=== PATIENT | male | born 1965 | race Caucasian/White ===

== ENCOUNTER 2018-09-28 10:53 | Emergency (ER) | payer OTHER ==
[~2018-09-28] VITALS: Ht 170.2 cm; Wt 92.1 kg
[~2018-09-28 10:53] MED LIST: LEVO750 PO; METO25ER PO; OXYC5 PO; SACC250C PO; WARF4 PO; WARF7.5; cipro
[2018-09-28] MEDS ORDERED: AMOX875 PO (11:13)
[2018-09-28] MEDS ORDERED: IBUP600 PO (12:09)
== END 2018-09-28 12:24 | disposition home or self-care (01) ==
LOC: ER 10:53
DX: S62.316A Displaced fracture of base of fifth metacarpal bone, right hand, initial encounter for closed fracture (principal); I10 Essential (primary) hypertension; Z79.899 Other long term (current) drug therapy; W01.0XXA Fall on same level from slipping, tripping and stumbling without subsequent striking against object, initial encounter
CPT/HCPCS: 29125; 73130; 99283-25

== ENCOUNTER → 2018-12-25 | Outpatient (CLI) | payer OTHER ==
[~2018-12-25] MED LIST changes: +AMOX875 PO; +IBUP600 PO
[2018-12-25 11:36] LABS: Source, Urine Clean Catch
[2018-12-25 13:12] LABS: Bilirubin, Urine Neg (Neg); Blood, Urine Neg (Neg); Glucose Qualitative, Urine Neg (Neg); Ketones, Urine Neg (Neg); Leukocyte Esterase, Urine Neg (Neg); Nitrite, Urine Neg (Neg); Protein, Urine Neg (Neg); Specific Gravity, Urine 1.015 (1.003-1.022); Urobilinogen, Urine NORM (Normal)
[2018-12-25 14:45] LABS: Appearance, Urine Clear (Clear); Color, Urine Yellow (P-Yellow)
== END ==
LOC: LAB 11:33 → LAB SHORT 11:33 → LAB FUT 12-20 12:40 → EDSTATUS 12-20 12:40
PROVIDERS: Internal Medicine
DX: R97.20 Elevated prostate specific antigen [PSA] (principal)
CPT/HCPCS: 81003

== ENCOUNTER → 2023-01-30 | Outpatient (CLI) | payer OTHER ==
[~2023-01-30] MED LIST changes: +ASPIR 8181 M1 PO; +TRAZ150T57 PO
[2023-01-30 14:14] LABS: BASOPHILS ABSOLUTE AUTO 0.07 K/mm3 (0.00-0.23); BASOPHILS PERCENT AUTO 1 % (0-2); EOSINOPHILS ABSOLUTE AUTO 0.24 K/mm3 (0.00-0.68); EOSINOPHILS PERCENT AUTO 3 % (0-6); Hematocrit 45.2 % (37.0-53.0); Hemoglobin 15.6 g/dL (13.5-17.5); IMMATURE GRAN ABSOLUTE AUTO 0.03 K/mm3 (0.00-0.10); IMMATURE GRAN PERCENT AUTO 0 % (0-1); LYMPHOCYTES ABSOLUTE AUTO 2.63 K/mm3 (0.84-5.20); LYMPHOCYTES PERCENT AUTO 30 % (21-46); MONOCYTES ABSOLUTE AUTO 0.97 K/mm3 (0.16-1.47); MONOCYTES PERCENT AUTO 11 % (4-13); Mean Corpuscular HGB 32.9 pg (26.0-34.0); Mean Corpuscular HGB Conc 34.5 g/dL (31.5-36.5); Mean Corpuscular Volume 95 fL (80-100); Mean Platelet Volume 9.8 fL (9.1-12.4); NEUTROPHILS ABSOLUTE AUTO 4.84 K/mm3 (1.96-9.15); NEUTROPHILS PERCENT AUTO 55 % (41-73); Platelet Count 186 K/mm3 (150-400); RDW Coefficient Variation 12.5 % (11.7-14.2); RDW Standard Deviation 44.4 fL (35.1-46.3); Red Blood Cell Count 4.74 M/mm3 (4.30-5.90); White Blood Cell Count 8.78 K/mm3 (4.00-11.30)
== END ==
LOC: LAB SHORT 13:51 → LAB 13:51
PROVIDERS: Internal Medicine Cardiovascular Disease
DX: Z01.812 Encounter for preprocedural laboratory examination (principal); T82.857A Stenosis of other cardiac prosthetic devices, implants and grafts, initial encounter
CPT/HCPCS: 85025; 87040

== ENCOUNTER 2023-02-07 07:06 | Day surgery (SDC) | payer OTHER ==
[~2023-02-07] VITALS: Ht 167.6 cm; Wt 99.3 kg
[2023-02-07 09:15] VITALS: BP 115/84
[2023-02-07 09:30] VITALS: BP 115/74
[2023-02-07 09:45] VITALS: BP 120/79
[2023-02-07 10:00] VITALS: BP 118/77
[2023-02-07 10:32] VITALS: BP 137/83
--- NOTE | 2023-02-07 11:46 | NUR ---
DISCHARGE HAS BEEN REVIEWED WITH PT AND . PT UP TO AND FROM BATHROOM. ALL AIR HAD BEEN REMOVED FROM TR BAND. PT DRESSED WITH ASSIST FROM . SALINE LOCK REMOVED WITH CATHETER INTACT. TR BAND REMOVED AND CLOTH DOT PLACED. ARM BOARD PLACED TO R ARM. DISCHARGE REVIEWED AGAIN WITH PT AND , NO QUESTIONS. PT DISCHARGED IN CARE OF HIS , REFUSED W/C TO PRIVATE VEHICLE.
== END 2023-02-07 22:52 | disposition home or self-care (01) ==
LOC: MHTC 07:06
DX: Z01.810 Encounter for preprocedural cardiovascular examination (principal); I10 Essential (primary) hypertension; E78.5 Hyperlipidemia, unspecified; I38 Endocarditis, valve unspecified
CPT/HCPCS: 76937; 93454; 99152; 99153; C1769; C1887; C1894; J1644; J2250; J3010; J7030; J7050; Q9967